=== PATIENT | female | born 1940 | race Caucasian/White ===

== ENCOUNTER → 2020-11-30 11:12 | Outpatient (CLI) | payer MEDICARE, OTHER, SELFPAY ==
--- NOTE | 2020-11-30 | DI.RAD.S_ITS ---
PROCEDURE: XR ELBOW LT MIN 3V INDICATIONS: PAIN AFTER FALL TECHNIQUE: 3 views of the elbow were acquired. COMPARISON: None. FINDINGS: Bones: No acute fracture. Severe joint degeneration. Scattered degenerative subchondral sclerosis and spurring. Near [id number] appearance in the ulnotrochlear compartment. Soft tissues: No radiographically visible elbow joint effusion. No suspicious soft tissue calcifications. IMPRESSION: Severe degenerative joint disease. No definite fracture although advanced arthritic changes limits study sensitivity. Dictated by: Loyd Toney M.D. on 11/30/2020 at 13:02 Approved by: Loyd Toney M.D. on 11/30/2020 at 13:03
--- NOTE | 2020-11-30 | DI.RAD.S_ITS ---
PROCEDURE: XR SHOULDER LT MIN 2V INDICATIONS: PAIN AFTER FALL TECHNIQUE: 3 views of the shoulder were acquired. COMPARISON: None. FINDINGS: Bones: Proximal humerus fracture involving the surgical neck and greater tuberosity. Background moderate to severe glenohumeral and AC joint degeneration. Soft tissues: No suspicious soft tissue calcifications. IMPRESSION: Proximal humerus fracture as above Dictated by: Loyd Toney M.D. on 11/30/2020 at 13:04 Approved by: Loyd Toney M.D. on 11/30/2020 at 13:05
== END ==
PROVIDERS: PCP Family Medicine; Referring Provider Family Medicine; Visit Provider Family Medicine
DX: S42.252A Displaced fracture of greater tuberosity of left humerus, initial encounter for closed fracture (principal); S42.212A Unspecified displaced fracture of surgical neck of left humerus, initial encounter for closed fracture; M19.022 Primary osteoarthritis, left elbow; W19.XXXA Unspecified fall, initial encounter; R52 Pain, unspecified
CPT/HCPCS: 73030; 73080

== ENCOUNTER → 2020-12-03 14:35 | Outpatient (CLI) | payer MEDICARE, OTHER, SELFPAY ==
--- NOTE | 2020-12-03 14:40 | DI.RAD.S_ITS ---
PROCEDURE: XR HAND LT MIN 3V INDICATIONS: left thumb pain, hand swelling TECHNIQUE: 3 views of the hand(s) acquired. COMPARISON: None. FINDINGS: Bones: No fractures or dislocations. Subacute appearing healing fracture deformity of the 5th metacarpal distal shaft. On a present on Carpal bones are normally aligned. No suspicious bony lesions. Polyarticular joint space narrowing with periarticular osteophytosis, most notably and severe involving the 1st CMC joint. No definitive erosions. Soft tissues: No suspicious soft tissue calcifications. IMPRESSION: Diffuse joint degeneration, severe involving the 1st CMC joint. Subacute appearing healing fracture involving the distal shaft of the 5th metacarpus. Dictated by: Sylvester FALCON Interpreted: Ariel Colemnares MD on 12/03/2020 at 14:53 Transcribed by: MARCUS on 12/03/2020 at 14:55 Approved by: Ariel Colmenares M.D. on 12/03/2020 at 15:42
== END ==
PROVIDERS: PCP Family Medicine; Referring Provider Physician Assistant; Visit Provider Physician Assistant
DX: M79.645 Pain in left finger(s) (principal); M18.12 Unilateral primary osteoarthritis of first carpometacarpal joint, left hand; S62.327D Displaced fracture of shaft of fifth metacarpal bone, left hand, subsequent encounter for fracture with routine healing
CPT/HCPCS: 73130

== ENCOUNTER → 2021-01-08 10:45 | Outpatient (CLI) | payer MEDICARE, OTHER, SELFPAY ==
--- NOTE | 2021-01-08 | DI.RAD.S_ITS ---
PROCEDURE: XR SHOULDER LT MIN 2V INDICATIONS: RECHECK LEFT SHOULDER FRACTURE TECHNIQUE: 3 views of the shoulder were acquired. COMPARISON: [facility], CR, XR SHOULDER LT MIN 2V, 11/30/2020, 11:50. FINDINGS: Bones: Again noted is impacted left proximal humeral shaft/surgical neck fracture. There is interval healing at fracture site with increased sclerosis and partial bony union. No new fracture or dislocation is seen moderate shoulder joint osteoarthritic changes are seen.. No suspicious bony lesions. Visualized ribs appear intact. Soft tissues: No suspicious soft tissue calcifications. IMPRESSION: Interval healing at left proximal humeral shaft fracture site with stable left shoulder alignment. No new fracture or dislocation. Moderate shoulder joint osteoarthritis. Dictated by: Noel Marshall M.D. on 01/08/2021 at 12:32 Approved by: Noel Marshall M.D. on 01/08/2021 at 12:49
== END ==
PROVIDERS: PCP Family Medicine; Referring Provider Family Medicine; Visit Provider Family Medicine
DX: S42.392D Other fracture of shaft of left humerus, subsequent encounter for fracture with routine healing (principal); M19.012 Primary osteoarthritis, left shoulder; X58.XXXD Exposure to other specified factors, subsequent encounter
CPT/HCPCS: 73030

== ENCOUNTER 2021-07-20 11:05 | Emergency (ER) | payer OTHER, SELFPAY ==
[2021-07-20] VITALS (31 sets, daily range): BP systolic 113–159; BP diastolic 59–92; PULSE 60–86; RESP 12–31; TEMP 36.4–36.9; O2SAT 96–100; BMI 22.6
--- NOTE | 2021-07-20 11:18 | DI.RAD.S_ITS ---
PROCEDURE: XR HUMERUS RT 2V INDICATIONS: fall with upper arm pain TECHNIQUE: 3 views of the humerus were acquired. COMPARISON: None. FINDINGS: Bones: There is anterior-inferior dislocation at glenohumeral joint. No obvious fracture is identified. Moderate acromioclavicular joint and glenohumeral joint osteoarthritic changes are seen.. No suspicious bony lesions. Soft tissues: No suspicious soft tissue calcifications. IMPRESSION: Anterior-inferior dislocation at glenohumeral joint. No obvious humeral fracture is seen. Right shoulder joint osteoarthritis. Dictated by: Noel Marshall M.D. on 07/20/2021 at 11:51 Approved by: Noel Marshall M.D. on 07/20/2021 at 11:51
[2021-07-20] MEDS: ACETAMINOPHEN 325 MG TABLET 650 MG PO (12:35)
--- NOTE | 2021-07-20 12:53 | ED_ITS ---
HPI - Fall General Chief Complaint: Fall Stated Complaint: Fell at work- injured right shoulder Time Seen by Provider: 07/20/21 12:29 Source: patient Mode of arrival: Wheelchair History of Present Illness HPI Narrative: Patient is an 80-year-old female who is here for evaluation of a right shoulder injury. Patient states she was at work today. She was doing some surveying. She tripped over/slipped on some rocks and fell forward hurting her right shoulder. No other injuries from the event. No prior history of shoulder dislocations. No head injury. Related Data Home Medications Medication Instructions Recorded Confirmed No Known Home Medications 07/16/21 07/16/21 Allergies Allergy/AdvReac Type Severity Reaction Status Date / Time No Known Drug Allergies Allergy Verified 07/20/21 11:16 Review of Systems Constitutional Constitutional: Reports system reviewed and no additional complaints, except as documented Musculoskeletal Comments: Right shoulder pain Integumentary/Breasts Skin/Breast: Reports system reviewed and no additional complaints, except as documented Neurologic Neurologic: Reports system reviewed and no additional complaints, except as documented and Reports as per HPI Hematologic/Lymphatic On Anticoagulants: No Patient History Medical History First metacarpal bone fracture Social History Smoking Status: Never smoker Smoking Status: Never smoker alcohol intake frequency: holidays/special occasions only Substance Use Type: does not use Exam Initial Vital Signs Initial Vital Signs: Vital Signs Temperature 97.5 F L 07/20/21 11:16 Pulse Rate 60 07/20/21 11:16 Respiratory Rate 14 07/20/21 11:16 Blood Pressure 125/59 L 07/20/21 11:16 Pulse Oximetry 98 07/20/21 11:16 HENMT Head: normal to inspection and normocephalic Resp Effort & Inspection: normal respiratory effort Cardio Rate: regular rate Pulses: radial pulses present on the right Skin General: no rashes or lesions noted Neuro Sensory Exam: no sensory deficits noted Other: No sensory deficits located over the right deltoid Extrem Other: Right wrist and right elbow unremarkable. Patient has obvious deformity to the right shoulder. Procedures Orthopedic Joint Reduction Joint #1: Time Out Performed: Yes Side: right Joint Reduction Location: shoulder Analgesia: procedural sedation Shoulder Technique Used (if applicable): traction/counter-traction Technique used: direct manipulation Post-reduction neuro exam: intact Post-reduction vascular: intact Post Reduction X-Ray Obtained: Yes Post Reduction X-Ray Results: reduced Patient Tolerated Procedure: Well and No complications Orthopedic Splinting/Casting Injury #1: Side: right Upper Extremity Injury Location: shoulder Upper Extremity Immobilizer: sling/shoulder immobilizer Post splinting neuro exam: intact Post splinting vascular exam: intact Placed by: Provider Procedural Sedation Consent signed: Yes Time out performed: Yes Indication: fracture/dislocation reduction Preparation: cardiac rehabilitation program director applied, pulse oximeter, capnometry used, supplemental O2 applied, suction/airway equipment at bedside and IV secured IV Propofol dose (mg): 50 Intraservice time/total sedation time (min): 10 ED Sedation Level: Moderate (Concious) Patient Tolerated Procedure: Well and No complications Course Orders Ordered: ED Orders 07/20/21 11:18 XR humerus RT 2V Stat 07/20/21 12:54 RT Consult Eval and Treat Now 07/20/21 15:01 XR shoulder RT min 2V Stat Discontinued Medications Acetaminophen (Acetaminophen 325 Mg Tablet) 650 mg PO NOW ONE Stop: 07/20/21 12:30 Last Admin: 07/20/21 12:35 Dose: 650 mg Documented by: DUANE Sodium Chloride (Normal Saline 0.9%) 1,000 mls @ 125 mls/hr IV CONT NIYA Last Admin: 07/20/21 13:51 Dose: 125 mls/hr Documented by: MAME Morphine Sulfate (Morphine 4 Mg/Ml Inj) 4 mg IV NOW ONE Stop: 07/20/21 14:01 Last Admin: 07/20/21 14:04 Dose: 4 mg Documented by: MAME Propofol (Propofol 200 Mg/20 Ml Vial) 100 mg IV NOW ONE Stop: 07/20/21 12:55 Last Admin: 07/20/21 14:53 Dose: 50 mg Documented by: BERNADETTE Vital Signs Vital signs: Vital Signs - 8 hr 07/20/21 13:48 07/20/21 13:50 07/20/21 13:55 Temperature Pulse Rate 78 75 72 Respiratory Rate 23 21 31 H Blood Pressure 159/84 H 141/83 H Pulse Oximetry 100 99 99 07/20/21 14:00 07/20/21 14:05 07/20/21 14:10 Temperature Pulse Rate 73 70 79 Respiratory Rate 23 23 25 H Blood Pressure 143/81 H 142/80 H 134/82 Pulse Oximetry 98 100 99 07/20/21 14:15 07/20/21 14:20 07/20/21 14:25 Temperature Pulse Rate 74 69 72 Respiratory Rate 31 H 21 20 Blood Pressure 137/84 138/85 134/74 Pulse Oximetry 98 99 97 07/20/21 14:30 07/20/21 14:35 07/20/21 14:40 Temperature Pulse Rate 70 69 78 Respiratory Rate 22 23 26 H Blood Pressure 137/80 143/79 H 138/83 Pulse Oximetry 98 98 99 07/20/21 14:45 07/20/21 14:50 07/20/21 14:54 Temperature 98.4 F Pulse Rate 73 80 82 Respiratory Rate 16 27 H 18 Blood Pressure 137/84 146/89 H 146/89 H Pulse Oximetry 99 96 100 07/20/21 14:55 07/20/21 14:57 07/20/21 15:00 Temperature Pulse Rate 86 77 75 Respiratory Rate 23 22 16 Blood Pressure 130/71 130/71 113/66 Pulse Oximetry 100 100 98 07/20/21 15:05 07/20/21 15:10 07/20/21 15:15 Temperature Pulse Rate 74 78 80 Respiratory Rate 22 20 23 Blood Pressure 147/78 H 144/78 H 133/73 Pulse Oximetry 99 99 98 07/20/21 15:20 07/20/21 15:25 07/20/21 15:30 Temperature Pulse Rate 80 73 73 Respiratory Rate 24 21 23 Blood Pressure 139/92 H 125/64 136/65 Pulse Oximetry 98 99 98 07/20/21 15:35 07/20/21 15:40 07/20/21 15:45 Temperature Pulse Rate 72 78 74 Respiratory Rate 16 21 18 Blood Pressure 128/69 136/76 131/71 Pulse Oximetry 99 98 96 07/20/21 15:50 07/20/21 15:55 07/20/21 16:00 Temperature Pulse Rate 73 77 74 Respiratory Rate 20 21 26 H Blood Pressure 119/71 133/80 130/82 Pulse Oximetry 98 98 99 MDM - Fall Lab Data Labs: Point of Care Testing Test Results Not applicable Imaging Data Extremity x-ray #1: Radiologist's Impression: [address] [address] XRay Report Signed Patient: Smith Lindo MR#: [id number] : 1940 Acct:[id number] Age/Sex: 80 / F Date of Service: 07/20/21 Loc: ED Accession Number: [id number] ?? Procedure: XR humerus RT 2V Ordering Provider: Kishore Chan D.O. PROCEDURE:? XR HUMERUS RT 2V ? INDICATIONS:? fall with upper arm pain ? TECHNIQUE:? 3 views of the humerus were acquired.? ? COMPARISON:? None. ? FINDINGS:? ? Bones:? There is anterior-inferior dislocation at glenohumeral joint.? No obvious fracture is identified.? Moderate acromioclavicular joint and glenohumeral joint osteoarthritic changes are seen..? No suspicious bony lesions.? ? Soft tissues:? No suspicious soft tissue calcifications.? ? IMPRESSION:? Anterior-inferior dislocation at glenohumeral joint.? No obvious humeral fracture is seen.? Right shoulder joint osteoarthritis. ? ? Dictated by: Noel Marshall M.D. on 07/20/2021 at 11:51 ? ? Approved by: Noel Marshall M.D. on 07/20/2021 at 11:51? Extremity x-ray #2: Radiologist's Impression: [address] [address] XRay Report Signed Patient: Smith Lindo MR#: [id number] : 1940 Acct:[id number] Age/Sex: 80 / F Date of Service: 07/20/21 Loc: ED Accession Number: [id number] ?? Procedure: XR shoulder RT min 2V Ordering Provider: Kishore Chan D.O. PROCEDURE:? XR SHOULDER RT MIN 2V ? INDICATIONS:? post reduction ? TECHNIQUE:? Two views of the shoulder were acquired.? ? COMPARISON:? [facility], CR, XR HUMERUS RT 2V, 07/20/2021, 11:11.? [facility], CR, XR SHOULDER LT MIN 2V, 01/08/2021, 10:50. ? FINDINGS:? ? Bones:? Successful reduction of anterior dislocation of the right shoulder.? No visible fractures on these two given views.? The acromioclavicular articulation remains intact.? Visible ribs are intact. ? Soft tissues:? No suspicious soft tissue calcifications.? The underlying lung is fully inflated. ? IMPRESSION:? ? 1. Adequate reduction of right glenohumeral joint dislocation. ? 2. No visible fracture.? ? ? Dictated by: Eneida Odell M.D. on 07/20/2021 at 15:19 ? ? Approved by: Eneida Odell M.D. on 07/20/2021 at 15:24 MDM Narrative Medical decision making narrative: Anterior inferior shoulder dislocation noted on initial x-ray. Patient neurovascularly intact. Dislocation reduced easily here in the emergency department procedural sedation. Patient tolerated procedure well. Is placed in a sling. She was given return precautions and follow-up instructions. She expressed understanding and agreement. Discharge Plan Departure Patient Disposition: Home Clinical Impression: Dislocated shoulder Instructions: How to Use a Sling, DI for Shoulder Dislocation Activity Restrictions/Additional Instructions: I do recommend that you contact your primary doctor's office to discuss the indications for referral to have physical therapy. The sling is for your comfort like we discussed. You can ice your shoulder as well. Return to the emergency department for any new or worsening symptoms. Prescriptions: No Action No Known Home Medications 0RF Referrals: Anish Herrmann MD [Primary Care Provider] -
[2021-07-20] MEDS: SODIUM CHLORIDE 0.9% 1,000 ML 125 ML IV (13:51)
[2021-07-20] MEDS: MORPHINE 4 MG/ML INJ IV (14:04)
[2021-07-20] MEDS: propofoL 200 MG/20 ML VIAL 100 MG IV (14:53)
--- NOTE | 2021-07-20 15:01 | DI.RAD.S_ITS ---
PROCEDURE: XR SHOULDER RT MIN 2V INDICATIONS: post reduction TECHNIQUE: Two views of the shoulder were acquired. COMPARISON: [facility], CR, XR HUMERUS RT 2V, 07/20/2021, 11:11. [facility], CR, XR SHOULDER LT MIN 2V, 01/08/2021, 10:50. FINDINGS: Bones: Successful reduction of anterior dislocation of the right shoulder. No visible fractures on these two given views. The acromioclavicular articulation remains intact. Visible ribs are intact. Soft tissues: No suspicious soft tissue calcifications. The underlying lung is fully inflated. IMPRESSION: 1. Adequate reduction of right glenohumeral joint dislocation. 2. No visible fracture. Dictated by: Eneida Odell M.D. on 07/20/2021 at 15:19 Approved by: Eneida Odell M.D. on 07/20/2021 at 15:24
== END 2021-07-20 16:23 | disposition home or self-care (01) ==
PROVIDERS: Emergency Provider Emergency Medicine; PCP Family Medicine
DX: S43.004A Unspecified dislocation of right shoulder joint, initial encounter (principal); W18.09XA Striking against other object with subsequent fall, initial encounter; Y93.89 Activity, other specified; Y99.0 Civilian activity done for income or pay
CPT/HCPCS: 23650; 73030; 73060; 96374; 99152; 99284; 99285; J2270; J2704

== ENCOUNTER → 2024-03-07 07:53 | Outpatient (CLI) | payer MEDICARE, OTHER, SELFPAY ==
--- NOTE | 2024-03-07 07:54 | DI.ECHO.S_ITS ---
[facility] : : [address] : : [place] : : [id number] : : Phone: [phone] Echocardiogram Report + + :Name: LIZETTE BELLA Study Date: 03/07/2024 Height: 68 in : :[facility] ReadingLocation: Weight: 130 lb : : Gender: Female BSA: 1.7 m2 : :: 1940 Age: 83 yrs BP: 111/80 mmHg: :Reason For Study: TACHYCARDIA, FATIGUE : :Ordering Physician: JULY, : :CORRINE Márquez Performed By: Nathan Capone : :Referring: CORRINE MCDOWELL : + + Interpretation Summary 1. The left ventricular contractility is normal. Estimate ejection fraction is greater than 55% with no segmental wall motion abnormalities mild concentric LVH. Grade 1 diastolic dysfunction. 2. The right ventricle contractility is normal. 3. All cardiac chambers are of normal size. 4. Trace to mild mitral regurgitation. 5. Trace to mild tricuspid regurgitation with estimated pulmonary systolic artery pressures of 28 mmHg. 6. No obvious intracardiac masses nor thrombi. 7. No obvious intracardiac shunts. 8. No hemodynamically significant pericardial effusion. 9. Low right-sided filling pressures. Conclusion: Normal biventricular systolic function with mild valvular abnormalities. Procedure: A two-dimensional transthoracic echocardiogram with color flow and Doppler was performed. The study quality was technically good. There is no prior echocardiogram noted for this patient. The patient was in normal sinus rhythm during the exam. Left Ventricle: The left ventricle is normal in size. Left ventricular wall thickness is mildly increased. There is no ventricular septal defect visualized. The ejection fraction is estimated to be 55-60%. There are no focal wall motion abnormalities. Right Ventricle: The right ventricle is normal in size and function. Atria: The left atrial size is normal. Right atrial size is normal. There is no Doppler evidence for an atrial septal defect. Mitral Valve: The mitral valve is normal in structure and function. There is mild mitral regurgitation. Aortic Valve: The aortic valve is trileaflet. The aortic valve opens well. No aortic regurgitation is present. Tricuspid Valve: The tricuspid valve is normal in structure and function. There is mild tricuspid regurgitation. The right ventricular systolic pressure is estimated to be at least 28 mmHg based on an estimated right atrial pressure of 3 mm Hg. Pulmonic Valve: The pulmonic valve is normal in structure and function. There is no pulmonic valvular regurgitation. Great Vessels: The aortic root is normal size. The dimensions of the ascending aorta are normal. The pulmonary artery is normal size. The IVC is of normal diameter and collapses greater than 50% with a sniff. This suggests a low right atrial pressure of 3 mm Hg. Pericardium/ Pleura There is no pericardial effusion. There is no pleural effusion. MMode/2D Measurements & Calculations LVIDd: 4.7 cm LVOT diam: 2.4 cm LVIDs: 3.1 cm Ao root diam: 3.5 cm FS: 32.5 % asc Aorta Diam: 3.4 cm EPSS: 0.73 cm IVSd: 1.1 cm LVPWd: 1.1 cm LV amrtinez. diameter/BSA (cm/m^2): 2.7 LV sys. diameter/BSA (cm/m^2): 1.8 LA A2 area: 17.7 cm2 RA long axis: 4.5 cm LA A4 area: 16.5 cm2 RA area: 14.7 cm2 LA length (vol): 4.8 cm RA vol: 40.8 ml LA vol: 51.5 ml RA : 24.0 ml/m2 LA vol index: 30.3 ml/m2 IVC diam: 1.2 cm RVD1 (basal): 3.5 cm RVD2 (mid): 2.6 cm TAPSE: 2.6 cm Doppler Measurements & Calculations Ao V2 max: 143.5 cm/sec LVOT Max Maykel: 89.0 cm/sec Ao V2 mean: 92.1 cm/sec LV V1 max P.2 mmHg Ao max P.2 mmHg LV V1 VTI: 22.3 cm Ao mean P.9 mmHg MARINA(I,D): 3.2 cm2 Ao V2 VTI: 30.2 cm MARINA(V,D): 2.7 cm2 sev ratio: 0.74 MARINA indexed to BSA (cm^2/m^2): 1.9 MV E max maykel: 43.7 cm/sec TR max maykel: 250.9 cm/sec MV A max maykel: 62.0 cm/sec TR max P.2 mmHg MV E/A: 0.70 PA V2 max: 70.4 cm/sec Med Peak E' Maykel: 3.9 cm/sec PA V2 mean: 48.1 cm/sec E/E' med: 11.2 PA mean P.0 mmHg Lat Peak E' Maykel: 4.5 cm/sec PA pr(Accel): 25.9 mmHg E/E' lat: 9.6 E/e' average: 10.4 MV dec time: 0.27 sec SV(LVOT): 96.9 ml Reading Physician:
== END ==
PROVIDERS: PCP Family Medicine; Referring Provider Family Medicine; Visit Provider Family Medicine
DX: I08.1 Rheumatic disorders of both mitral and tricuspid valves (principal); R53.83 Other fatigue; R00.0 Tachycardia, unspecified
CPT/HCPCS: 93306